=== PATIENT | female | born 1950 | race Caucasian/White ===

== ENCOUNTER 2022-12-28 00:51 | Emergency (ER) | payer BC, MEDICAID ==
[~2022-12-28] VITALS: Ht 162.6 cm; Wt 61.0 kg
[2022-12-28 03:43] LABS: BASOPHILS % 0.8 % (0.0-2.0); EOSINOPHILS % 0.8 % (0.0-5.0); HEMOGLOBIN. 12.1 g/dL (12.0-16.0); LYMPHOCYTES % 18.9 % (20.0-50.0); MEAN CORPUSCULAR HEMOGLOBIN 29.9 pg (28.0-32.0); MEAN CORPUSCULAR VOLUME 86.3 fL (81.0-99.0); MEAN PLATELET VOLUME 9.8 fl (7.4-10.4); MONOCYTES % 4.4 % (2.0-8.0); NEUTROPHILS % 75.1 % (40.0-76.0); PLATELET 238 x1000/uL (130-400); RED BLOOD CELL COUNT 4.06 mill/uL (4.2-5.4); RED CELL DISTRIBUTION WIDTH 14.4 % (11.6-14.6)
[2022-12-28 04:05] LABS: CHLORIDE 99 mEq/L (98-107)
[2022-12-28 09:45] VITALS: BP 159/87
== END 2022-12-28 09:59 | disposition left against medical advice (07) ==
LOC: ER 01:05 → CANBEDREQ 09:55 → ER 09:59
DX: R07.89 Other chest pain (principal); E78.00 Pure hypercholesterolemia, unspecified; I10 Essential (primary) hypertension
CPT/HCPCS: 36415; 71045; 80053; 84484; 85025; 93005; 99285